=== PATIENT | male | born 1975 | race Caucasian/White ===

== ENCOUNTER 2017-04-04 09:21 | Inpatient (IN) | payer OTHER ==
[~2017-04-04] VITALS: Ht 180.3 cm; Wt 83.9 kg
--- NOTE | ~2017-04-04 | HP ---
Unit #: [id number] #: [id number] Patient: ANKIT CLINTON [id number] [place] [address] [id number] MR#: [id number] NAME: ANKIT CLINTON ROOM: P214 Age: 42 Sex: M Admission Date: 04/04/2017 : 1975 Attending Physician: Kasi Mcrae M.D. Admitting Physician: Kasi Mcrae M.D. Primary Care Physician: Aziza Deng M.D. HISTORY AND PHYSICAL HISTORY OF PRESENT ILLNESS Ankit is a 42 year old admitted to [address] [place] [address] because of his abuse of opioids. PAST MEDICAL HISTORY 1. Long history of opioid abuse to include Percocet. 2. High blood pressure. 3. Irritable bowel syndrome. PAST SURGICAL HISTORY Nothing reported. ALLERGIES Penicillin. SOCIAL HISTORY He dips snuff, uses marijuana and abuses opioids. FAMILY HISTORY Medically noncontributory. REVIEW OF SYSTEMS CONSTITUTIONAL: No fever or chills. HEENT: Denies any sore throat, ear pain or runny nose. CARDIOVASCULAR: Denies chest pain, irregular heart rhythm or palpitations. CHEST: Denies shortness of breath or cough. No hemoptysis. GASTROINTESTINAL: Denies nausea, vomiting, diarrhea or chronic constipation. ENDOCRINE: Denies history of increased thirst or urination. No recent significant weight loss or gain. GENITOURINARY: Denies dysuria, frequency, or hematuria. SKIN: Denies any rashes. HEMATOLOGIC: Denies history of increased bleeding or bruising. MUSCULOSKELETAL: Denies any hot, swollen joints. No generalized muscle pain. NEUROLOGIC: Denies problems with vision or speech. No frequent, severe headaches. No numbness, tingling or weakness in any extremities. Denies loss of bladder or bowel control. CURRENT MEDICATIONS 1. Detox protocol 2. Protonix 40 mg q day 3. Zestril 10 mg q day Unit #: [id number] #: [id number] Patient: ANKIT CLINTON PHYSICAL EXAMINATION GENERAL: Alert, well-nourished, in no apparent distress. VITAL SIGNS: Blood pressure 150/100, heart rate 80, respirations 16, temperature 98.6. WEIGHT: 185 pounds. HEIGHT: 5'11". SKIN: Warm and dry without rash or lesion. HEENT: Normocephalic. TMs not viewed. Oral and nasal passages clear. Conjunctivae clear. Pupils equal, round and reactive to light and accommodation. Extraocular movements intact. NECK: Supple without lymphadenopathy or thyromegaly. HEART: Regular rate and rhythm without murmur. LUNGS: Clear. ABDOMEN: Soft, nontender. : Not done. EXTREMITIES: No evidence of cyanosis, clubbing or edema. Moves all extremities without focal deficit. NEUROLOGICAL: Grossly within normal limits. Cranial Nerves: II: Visual samson are intact. III, IV AND : Extraocular movements are intact. Pupils are equal, round and reactive to light. V: Facial sensation is grossly normal. VII: Facial movements and expression are normal. VIII: Auditory acuity grossly intact. IX, X: Uvula is midline. Phonation is normal. XI: Patient shrugs shoulders and turns head normally. XII: Tongue protrudes in the midline. Sensory and Motor Function: Sensory and motor sensation is grossly normal. Motor: moves all extremities well. Coordination: Gait is normal. Deep Tendon Reflexes: Intact. IMPRESSION Psychiatric admission RECOMMENDATIONS PSYCHIATRIC: Per psychiatrist. MEDICAL: I see no contraindications to participating in facility's activities. MEDICAL PROGNOSIS Good. MEDICAL CONDITION Stable. Dictated by... Darlene Chapman PJosefAQuentin. for John Denis/jeff TD: 04/04/2017 21:04 JOB #: [id number] Unit #: [id number] #: [id number] Patient: ANKIT CLINTON HISTORY AND PHYSICAL Page 1 of 1 X Darlene Chapman X HISTORY AND PHYSICAL
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
--- NOTE | ~2017-04-04 | DS ---
Unit #: [id number] #: [id number] Patient: ANKIT CLINTON [id number] [place] [address] [id number] I MR#: [id number] NAME: ANKIT CLINTON ROOM: [facility] Age: 42 Sex: M Admission Date: 04/04/2017 : 1975 Discharge Date: 04/07/2017 Attending Physician: Kasi Mcrae M.D. Primary Care Physician: Aziza Deng M.D. DISCHARGE SUMMARY ADDENDUM REPORT The patient was originally scheduled for residential chemical dependence treatment; however, financial consideration has precluded him from engaging in that treatment. Accordingly, he was referred for treatment and the intensive outpatient program as per his request. No medication changes were undertaken at the time of discharge. Dictated by... Kasi Mcrae M.D. CB/azul TD: 04/10/2017 12:04 JOB #: [id number] DISCHARGE SUMMARY Page 1 of 1 X Kasi Mcrae MD X DISCHARGE SUMMARY
--- NOTE | ~2017-04-04 | PN ---
Unit #: [id number] #: [id number] Patient: ANKIT CLINTON [id number] [facility] [address] [place] [address] [id number] MR#: [id number] NAME: ANKIT CLINTON ROOM: [facility] Age: 42 Sex: M Admission Date: 04/04/2017 : 1975 Attending Physician: Kasi Mcrae M.D. Admitting Physician: Kasi Mcrae M.D. Primary Care Physician: John Brantley PROGRESS NOTES DATE 04/06/2017 DISCUSSION The patient continues to complain of significant GI discomfort but is more active within the therapeutic milieu. He is expressing interest today in residential chemical dependence treatment following discharge. Dictated by... Kasi Mcrae M.D. CB/elliott TD: 04/06/2017 14:29 JOB #: [id number] MARIA FERNANDA PROGRESS NOTES Page 1 of 1 X Kasi Mcrae MD X PROGRESS NOTE
[~2017-04-04 09:21] MED LIST: ABILIFY10 MG PO; BUSPAR15 M2 PO; CARAFATE1 G PO; FLEXERIL PO; HCTZ PO; LIPITOR PO; LISINOPRIL20 MG PO; OMEPRAZOLE20 M1 PO; PHENERGAN25 M1 PO; PREDNISONE PO; PROTONIX PO; PROZAC PO
[2017-04-05 09:50] LABS: BASOPHIL% 0.5 % (0-2.5); EOSINOPHIL# 0.1 X10e3 (0-0.7); EOSINOPHIL% 1.7 % (0.0-7.0); HEMOGLOBIN 12.7 gm/dL (13.0-16.0); LYMPHOCYTE# 1.4 X10e3 (1.0-3.5); LYMPHOCYTE% 28.9 % (17.0-45.0); MEAN CELL VOLUME 90.9 FL (83-96); MEAN CORPUSCULAR HEMOGLOBIN 30.3 PG (28-34); MEAN CORPUSCULAR HGB CONC 33.4 g/dL (30-36); MEAN PLATELET VOLUME 7.6 FL (6.5-11.5); MONOCYTE# 0.4 X10e3 (0-1.0); MONOCYTE% 8.5 % (3.0-12.0); NEUTROPHIL% 60.4 % (40-75); PLATELET COUNT 236 X10e3 (140-420); RED BLOOD COUNT 4.19 X10e (3.90-5.60); RED CELL DISTRIBUTION WIDTH 13.6 % (11.0-15.5)
[2017-04-05 09:51] LABS: DIFF IND NO
[2017-04-05 10:10] LABS: URINE APPEARANCE CLEAR; URINE BILIRUBIN NEG (NEG); URINE BLOOD NEG (NEG); URINE COLOR YELLOW; URINE GLUCOSE NEG (NEG); URINE KETONE NEG (NEG); URINE LEUKOCYTE ESTERASE NEG (NEG); URINE NITRATE NEG (NEG); URINE PH 6.5 (5-8); URINE PROTEIN NEG (NEG); URINE SPECIFIC GRAVITY 1.008 (1.003-1.035); URINE UROBILINOGEN 0.2 MG/DL (NEG)
[2017-04-05 10:14] LABS: ALBUMIN SERUM 3.9 g/dL (3.5-5.0); BILIRUBIN,TOTAL 0.7 mg/dL (0.2-2.0); CALCIUM SERUM 9.8 mg/dL (8.4-10.2); GLOM FILT RATE Estimated 92.4 mL/min (>60); POTASSIUM 4.3 mmol/L (3.5-5.1); PROTEIN TOTAL SERUM 6.4 g/dL (6.0-8.3)
[2017-04-05 11:52] LABS: AMPHETAMINE NEG (NEG); BARBITURATES NEG (NEG); BENZODIAZEPINES NEG (NEG); COCAINE NEG (NEG); MARIJUANA POS (NEG); OPIATES NEG (NEG); TRICYCLIC ANTIDEPRESSANTS NEG (NEG); U METHADONE NEG (NEG)
== END 2017-04-07 15:33 | disposition home or self-care (01) | DRG 897 ==
LOC: P2S 11:16
PROVIDERS: Specialist
PROC: HZ2ZZZZ Detoxification Services for Substance Abuse Treatment (ICD-10-PCS; principal; 2017-04-05)
DX: F11.20 Opioid dependence, uncomplicated (principal); F31.9 Bipolar disorder, unspecified; I10 Essential (primary) hypertension; K21.9 Gastro-esophageal reflux disease without esophagitis; K58.9 Irritable bowel syndrome, unspecified; Z88.0 Allergy status to penicillin
CPT/HCPCS: 80053; 80307; 81003; 85025; 86592